=== PATIENT | male | born 1960 | race Caucasian/White ===

== ENCOUNTER 2018-06-08 18:08 | Inpatient (IN) ==
[2018-06-08] MEDS ORDERED: Naloxone 0.4 MG/ML INJ IVP PRN (23:03)
[2018-06-08 23:33] LABS: Basophils % 0.1 %; Eosinophils % 0.1 %; Hematocrit 33.2 % (37.5-50.1); Hemoglobin 10.3 g/dL (12.9-16.9); Immature Granulocytes % 0.5 % (0-4); Lymphocytes # 0.5 K/mcL (0.6-4.6); Lymphocytes % 2.8 %; Mean Corpuscular Volume 90.2 fL (83.0-100.0); Mean Platelet Volume 9.7 fL (9.4-12.4); Monocytes # 0.3 K/mcL (0.0-1.3); Monocytes % 1.6 %; Platelet Count 250 K/mcL (140-400); Red Blood Count 3.68 M/mcL (4.19-5.50); Red Cell Distribution Width 16.2 % (11.5-14.5); Segmented Neutrophils % 94.9 %
[2018-06-08 23:45] LABS: Alanine Aminotransferase 14 Units/L (7-52); Albumin 3.2 g/dL (3.5-5.7); Albumin/Globulin Ratio 0.8 (1.1-2.2); Alkaline Phosphatase 74 Units/L (34-104); Aspartate Amino Transferase 12 Units/L (13-39); BUN/Creatinine Ratio 16 (6-26); Bilirubin,Total 0.2 mg/dL (0.3-1.0); Blood Urea Nitrogen 17 mg/dL (6-20); Calcium 8.9 mg/dL (8.6-10.3); Carbon Dioxide 31 mEq/L (23-29); Chloride 107 mEq/L (98-107); Globulin 4.2 g/dL (2.4-3.5); Glucose 128 mg/dL (70-105); Osmolality,Calculated 305 (280-300); Sodium 146 mEq/L (136-145); Total Protein 7.4 g/dL (6.4-8.9); eGFR For Non-African Americans > 60 (> 60)
[2018-06-08 23:48] LABS: Troponin I 0.05 ng/mL (< 0.04)
[2018-06-08] MEDS: Ipratropium/Albuterol Neb 3 ML IH SCH (23:48)
[2018-06-09] MEDS: MethylPREDNISolone 40 MG/ML VIAL IVP SCH ×4 (00:13→18:03)
--- NOTE | 2018-06-09 02:53 | Internal Med History&Physical ---
<DarylignaciaClarisa N - Last Filed: 06/09/18 05:08> Date of Encounter: 06/09/18 Time of Encounter: 02:46 Internal Medicine - H&P: HPI Chief complaint: shortness of breath History of present illness: Mr. Cespedes is a 57 year old male with a history of lung cancer s/p partial lobectomy, CHF, and COPD presenting from outside hospital with a chief complaint of shortness of breath. Patient reportedly experienced shortness breath for 3 days and progressively worsened. He states that he had a at-home nurse who advised him to present to the emergency department after oxygen recording at home was low. Patient has a reported history of COPD, but not oxygen dependent and no home COPD medications. He does have a history of CHF and states that his Lasix was stopped approximately 11 days ago. He states that from May 29 to June 08 he has gained 10 pounds. Upon arrival to [facility] patient was noted to be saturating 88% on room air and have labored breathing. He was noted to be edematous in his lower extremities. He was given nebulizer treatm ent, Lasix 40 mg, Solu-Medrol 125, and Levaquin 750. Chest x-ray was negative for pneumonia however he did have a white blood cell count 21,000 which prompted the antibiotic treatment. BNP was within normal limits at 360 however the patient did have an elevated troponin of 0.07 and a lactic acid of 2.39. EKG was performed that did not reveal any acute ST-T wave changes. Patient was transferred to [facility] for further care and management and possible cardiology consultation. Past Med Surg Social Fam HX - Past Medical History Medical history: cancer, COPD, GERD, hyperlipidemia, hypertension Additional medical history: Lung Cancer - Past Surgical History Surgical History: other Additional surgical history: Left Lower Lobectomy - Social History Smoking Status: Current every day smoker Packs per day: 1/2 Smokeless Tobacco Status: No Alcohol use: none Drug use: none - Family History Mother History Unknown: Yes Living Status: Age at : 76 Cause of : Lung Cancer Hx Family Cardiac Disorders: Yes Hx Family Respiratory Disorders: Yes Hx Family Cancer: Yes (Lung Cancer) Internal Medicine - H&P: Meds Aspirin/Calcium Carbonate/Mag [Aspirin Buffered 325 mg Tab] 325 mg PO DAILY 06/08/18 [History] Atorvastatin Calcium [Lipitor] 40 mg PO HS 06/08/18 [History] Lisinopril [Zestril] 20 mg PO DAILY 06/08/18 [History] Mirtazapine 7.5 mg PO HS 06/08/18 [History] Ranitidine HCl [Zantac] 250 mg PO BID 06/08/18 [History] Allergy/AdvReac Type Severity Reaction Status Date / Time No Known Allergies Allergy Unverified 06/08/18 23:52 All Systems PM: A 10-system review of systems was performed and is negative for pertinent findings except as documented above in the HPI. - Constitutional Constitutional: no fever(s) - EENT Eyes: no blurry vision Ears: no decreased hearing - Cardiovascular Cardiovascular ROS IM: dyspnea on exertion, no chest pain - Respiratory Respiratory: dyspnea, chest congestion - Gastrointestinal Gastrointestinal: no diarrhea, no hematochezia, no melena - Genitourinary Genitourinary ROS male: no hematuria - Musculoskeletal Musculoskeletal ROS IM: no muscle weakness - Integumentary Integumentary IM: no rash - Neurological Neurological ROS: no dizziness - Psychiatric Psychiatric: no confusion - Endocrine Endocrine IM: no cold intolerance - Constitutional Vitals: Pulse Resp BP Pulse Ox 102 19 131/72 94 06/08/18 22:58 06/08/18 23:48 06/08/18 22:58 06/08/18 23:48 Exam: Constitutional: sleepy but does wake to verbal stimuli. Alert and oriented X 3. not acutely altered. No acute respiratory distress. HEENT: EOMI, oropharynx moist, no oropharyngeal lesions. External ears and nares patent. Neck: No JVD, trachea midline Chest: symmetrical chest wall rise, no tenderness to palpation Cardiovascular: regular rate and rhythm, no murmurs Respiratory: course breath sounds bilaterally on expiration in all lung saab but worse in lower lung saab, no wheezing. Abdomen: soft nontender, no guarding or rigidity Extremities: 2+ pitting edema in lower extremities bilaterally Skin: no rashes, no jaundice Internal Med - H&P Results - Labs CBC & Chem 7: 06/08/18 23:15 06/08/18 23:15 Labs: Short CBC 06/08/18 Range/Units 23:15 WBC 17.9 H (4.3-11.1) K/mcL Hgb 10.3 L (12.9-16.9) g/dL Hct 33.2 L (37.5-50.1) % Plt Count 250 (140-400) K/mcL Neutrophils # 17.0 H (1.6-8.9) K/mcL BMP 06/08/18 23:15 Sodium 146 H Potassium 4.0 Chloride 107 Carbon Dioxide 31 H BUN 17 Creatinine 1.05 Glucose 128 H Calcium 8.9 Cardiac Enzymes 06/08/18 Range/Units 23:15 Troponin I 0.05 H* (< 0.04) ng/mL Liver Function 06/08/18 Range/Units 23:15 Total Bilirubin 0.2 L (0.3-1.0) mg/dL AST 12 L (13-39) Units/L ALT 14 (7-52) Units/L Alkaline Phosphatase 74 (34-104) Units/L Albumin 3.2 L (3.5-5.7) g/dL - Assessment and plan (1) Acute exacerbation of chronic obstructive pulmonary disease (COPD) Current Visit: Yes Status: Acute Assessment and plan: Patient with reported history of COPD presents with 3 day history of SOB. Spirometry in December 2017 reveals FEV1 of 48% of predicted, reflecting a GOLD 3 (Severe) Stage of COPD Received Duoneb, solumedrol, and levaquin at outside hospital Vitals stable currently, saturating well on 2L Reports improvement in SOB at this time, but has significant course breath sounds bilaterally. No wheezes noted. Not on home inhalers or COPD medications Will continue scheduled duonebs and as needed albuterol inhaler Continuous pulse ox CXR negative for pneumonia, however WBC elevated at 21 at outside hospital. Repeat WBC at [place] 17.9. Repeating CXR Lactic acid at outside hospital 2.39, repeat at [facility] was 1.0 Continue Levaquin legionella antigen, strep. pneumo antigen, Blood cultures, MRSA swab pending (2) Elevated troponin Current Visit: Yes Status: Acute Assessment and plan: Suspect demand secondary to COPD vs. CHF exacerbation Elevated troponin of 0.07 at outside hospital Patient denies chest pain Repeat troponin trended down to 0.05 Repeat EKG reveals new T wave inversions in leads V4 and V5 when compared to EKG from outside hospital Stress testing in December 2017 was nondiagnostic for pharmacologic stress test due to submaximal HR and basline ST-T wave changes Nuclear stress test was negative for ischemic changes in December 2017 Gated EF 47% at that time Consideration may be given to possibility of PE if no improvement from nebulizer treatments and diuresis. Patient has a history of Cancer in the last 6 months, was tachycardic, and has troponin elevation with EKG changes. Wells criteria moderate risk. However, given current presentation and physical exam findings, COPD vs. CHF exacerbation is more likely responsible for patient's elevated troponin and SOB. Obtaining Echo cardiac monitoring Cardiology consultation placed (3) CHF (congestive heart failure) Current Visit: Yes Status: Acute Assessment and plan: History of CHF, Gated EF calculated on stress test in 12/2017 was 47% reportedly was on lasix and digoxin which were discontinued. States lasix was stopped 11 days ago He reports a 10lb weight increase over that time Received lasix 40mg at outside hospital Physical exam reveals bilateral ronchorous breath sounds and 2+ pitting edema of the lower extremities BNP at outside hospital was 360, however given patient's current clinical picture cannot completely rule out CHF exacerbation daily weights Strict I&Os Lasix 40mg daily IVP echo pending Qualifiers: Qualified Code(s): I50.9 - Heart failure, unspecified (4) History of lung cancer Current Visit: Yes Status: Acute Assessment and plan: Reports history of lung cancer, does not recall if it was small cell vs. nonsmall cell Partial lobectomy in February 2018 CXR reveals chronic changes Denies chemotherapy (5) Hypertension Current Visit: Yes Status: Acute Assessment and plan: Continue home lisinopril Qualifiers: Qualified Code(s): I10 - Essential (primary) hypertension (6) Hyperlipidemia Current Visit: Yes Status: Acute Assessment and plan: Continue home dose statin Qualifiers: Qualified Code(s): E78.5 - Hyperlipidemia, unspecified (7) GERD (gastroesophageal reflux disease) Current Visit: Yes Status: Acute Assessment and plan: Continue home dose ranitidine Qualifiers: Qualified Code(s): K21.9 - Gastro-esophageal reflux disease without esophagitis (8) DVT prophylaxis Current Visit: Yes Status: Acute Assessment and plan: Heparin 5000u SubQ 12H - Time Spent With Patient Total time spent is greater than 50% in coordination of care (as documented) at patient's floor/unit and/or counseling patient: <Teddy Masters - Last Filed: 06/09/18 08:21> Date of Encounter: 06/09/18 Internal Medicine - H&P: HPI History of present illness: Mr. Cespedes is a 57 year old male All Systems PM: A 10-system review of systems was performed and is negative for pertinent findings except as documented above in the HPI. - Constitutional Vitals: Temp Pulse Resp BP Pulse Ox 98.8 F 96 20 121/66 99 06/09/18 04:46 06/09/18 04:46 06/09/18 04:46 06/09/18 04:46 06/09/18 04:46 Internal Med - H&P Results - Labs CBC & Chem 7: 06/08/18 23:15 06/08/18 23:15 Labs: Short CBC 06/08/18 Range/Units 23:15 WBC 17.9 H (4.3-11.1) K/mcL Hgb 10.3 L (12.9-16.9) g/dL Hct 33.2 L (37.5-50.1) % Plt Count 250 (140-400) K/mcL Neutrophils # 17.0 H (1.6-8.9) K/mcL BMP 06/08/18 23:15 Sodium 146 H Potassium 4.0 Chloride 107 Carbon Dioxide 31 H BUN 17 Creatinine 1.05 Glucose 128 H Calcium 8.9 Cardiac Enzymes 06/08/18 06/09/18 Range/Units 23:15 05:51 Troponin I 0.05 H* 0.03 (< 0.04) ng/mL Liver Function 06/08/18 Range/Units 23:15 Total Bilirubin 0.2 L (0.3-1.0) mg/dL AST 12 L (13-39) Units/L ALT 14 (7-52) Units/L Alkaline Phosphatase 74 (34-104) Units/L Albumin 3.2 L (3.5-5.7) g/dL - Impressions ITS Impressions Chest X-Ray 06/09/18 05:07 IMPRESSION: Stable chest. D/ / Benjamin Salcedo MD / Benjamin Salcedo MD Interpreting Provider: Benjamin Salcedo MD - Time Spent With Patient Total time spent is greater than 50% in coordination of care (as documented) at patient's floor/unit and/or counseling patient: - Attending Attestation I performed a history and physical examination of the patient and discussed his management with the resident. I reviewed the resident's note and agree with the assessment and plan of care. In short patient is a 57-year-old male with a past medical history of lung cancer status post partial lobectomy, CHF and COPD non- oxygen dependent who initially presented to [place] with a 3 day history of progressively worsening shortness of breath. Initially found to be saturating 88% on room air. Of note patient was previously on Lasix which was discontinued 11 days prior. Since then patient has noted increased lower extremity edema and 10 pound weight gain. Patient received nebulizer treatment, Lasix 40 mg, Solu- Medrol 125, and Levaquin 750. Chest x-ray was negative for pneumonia however he did have a white blood cell count 21,000 which prompted the antibiotic treatment. Additionally, patient was found to have an elevated troponin of 0.07 and a lactic acid of 2.39. EKG did not reveal any acute ST-T wave changes. Patient admitted for COPD exacerbation. On my assessment patient did have significant rhonchi on lung examination along with 1+ lower extremity edema. He denied any chest pain and was otherwise stable from a respiratory and hemodynamic standpoint. We will treat for COPD as well as CHF exacerbation. Elevated troponin likely secondary to demand ischemia. We will continue to monitor on telemetry and trend troponin.
[2018-06-09] MEDS ORDERED: Albuterol 2.5 MG/3 ML NEBULIZER IH PRN (03:15)
[2018-06-09] MEDS: Ipratropium/Albuterol Neb 3 ML IH SCH ×4 (04:12→22:48)
[2018-06-09] MEDS ORDERED: Aspirin 325 MG TABLET PO ONE (05:07)
[2018-06-09] MEDS: *HR* Heparin 5,000 UNIT/ML VIAL SQ SCH ×3 (05:22→21:09)
[2018-06-09] MEDS ORDERED: Regadenoson 0.4 MG/5 ML SYRINGE IVP ONE (06:14)
[2018-06-09] MEDS: Lisinopril 20 MG TABLET PO SCH (09:01)
[2018-06-09] MEDS: Levofloxacin 500 MG/100 ML 500 MG/100 ML BAG IVPB SCH (09:01)
[2018-06-09] MEDS: Furosemide 40 MG/4 ML VIAL IVP SCH (09:01)
[2018-06-09] MEDS: Aspirin Enteric Coated 325 MG Tablet PO SCH (09:01)
--- NOTE | 2018-06-09 09:12 | Cardiology Consult Note ---
<ShawnYsabelKarlos C - Last Filed: 06/09/18 10:23> Date of Encounter: 06/09/18 Time of Encounter: 09:12 Assessment and Plan (1) Elevated troponin Current Visit: Yes Status: Acute Consulted for elevated troponin in the setting of EKG changes Likely demand ischemia secondary to COPD exacerbation and CHF exacerbation Less likely secondary to ACS, new T wave inversion in V4 isolated, likely related to demand Troponins have trended down to normal since admission, stress negative within 1 year Patient denies chest pain at any point, shortness of breath independent Repeat EKG stable this morning, no new changes, echo pending Recommendations Strict I&O and daily weights, diuresis Restart Lasix PRN for every 3 pounds weight gain Potassium with Lasix as needed Continue home ASA, Lisinopril Cardiology will sign off, please re-consult with any changes Further recommendations per Dr. Cooper (2) Acute exacerbation of chronic obstructive pulmonary disease (COPD) Current Visit: Yes Status: Acute History of COPD and partial lobectomy New cough and shortness of breath, O2 requirement White count may represent developing pneumonia Management per primary team (3) Acute exacerbation of CHF (congestive heart failure) Current Visit: Yes Status: Acute History of systolic heart failure, last known EF 47%, echo pending Previously on Lasix, taken off, 10 pound weight gain Physical exam appears volume overloaded Recommend continued diuresis Management per primary team Qualifiers: Heart failure type: systolic Qualified Code(s): I50.23 - Acute on chronic systolic (congestive) heart failure Discussion w patient/family: The assessment and plan as outlined above was discussed with the patient and/or family members who expressed understanding and agreement. All questions were answered. Thank you for involving us in the care of your patient. Please call with any questions. History of Present Illness Consult date: 06/09/18 Requesting physician: Clarisa Sorto Consult reason: elevated troponins and ekg changes Chief complaint: shortness of breath History of present illness: Mr. Cespedes is a 57 year old male with a past medical history of lung CA s/p partial lobecomy, CHF, COPD. He presented to [place] several days ago for progressively worsening shortness of breath and low oxygen saturation. He also mentioned his Lasix and Digoxin were stopped approximately 11 days ago by his PCP, and he has gained 10 pounds since then. He denies any chest pain. He was sent from [place] to [facility]. CXR negative, troponins trended 0.07, 0.05, 0.03. New T wave inversion in V4. Stress test performed here December 2017 was negative for perfusion defects, with a gated EF of 47%. He denies any previous catheterization, PCI, or CABG. EV Echcardiogram was ordered and Cardiology was consulted. Past Med Surg Social Fam HX - Past Medical History Medical history: cancer, COPD, GERD, hyperlipidemia, hypertension Additional medical history: Lung Cancer - Past Surgical History Surgical History: other Additional surgical history: Left Lower Lobectomy - Social History Smoking Status: Current every day smoker Packs per day: 1/2 Smokeless Tobacco Status: No Alcohol use: none Drug use: none - Family History Mother History Unknown: Yes Living Status: Age at : 76 Cause of : Lung Cancer Hx Family Cardiac Disorders: Yes Hx Family Respiratory Disorders: Yes Hx Family Cancer: Yes (Lung Cancer) Medications and Allergies Aspirin/Calcium Carbonate/Mag [Aspirin Buffered 325 mg Tab] 325 mg PO DAILY 06/08/18 [History] Atorvastatin Calcium [Lipitor] 40 mg PO HS 06/08/18 [History] Lisinopril [Zestril] 20 mg PO DAILY 06/08/18 [History] Mirtazapine 7.5 mg PO HS 06/08/18 [History] Ranitidine HCl [Zantac] 250 mg PO BID 06/08/18 [History] Allergy/AdvReac Type Severity Reaction Status Date / Time No Known Allergies Allergy Unverified 06/08/18 23:52 All Systems Review: The remainder of the systems were reviewed and are negative - Constitutional Constitutional: weight gain, no chills, no fever(s) - Cardiovascular Cardiovascular: dyspnea at rest, dyspnea on exertion, orthopnea, no chest pain at rest, no chest pain with exertion, no irregular heart rhythm, no radiating jaw, neck or arm pain, no palpitations - Respiratory Respiratory: cough, dyspnea - Gastrointestinal Gastrointestinal: no abdominal pain, no nausea - Integumentary Integumentary: no erythema, no rash - Neurological Neurological: no abnormal speech, no focal weakness Physical Examination Vital Signs, Last 4 Hours Temp Pulse Resp BP Pulse Ox 06/09/18 09:05 98.9 F 90 16 119/60 98 General: Conversant, No Apparent Distress HEENT: Atraumatic, Mucus Membranes Moist Neck: Other (JVD present) Cardiac: Reg Rate and Rhythm, Other (S1 and S2 present, loud S2) Lungs: Other (significant rhonchi, wet cough) Neuro: Alert and responsive, No focal deficits noted Abdomen: Soft, Non-Tender Skin: No rashes noted on visualized skin Musculoskeletal: No Chest Wall Tenderness Extremities: Normal Pulses, Other (mild non pitting edema present in bilateral lower extremities) Results 06/08/18 23:15 06/08/18 23:15 Lab Results 06/08/18 06/08/18 06/09/18 23:15 23:15 05:51 WBC 17.9 H Hgb 10.3 L Hct 33.2 L Plt Count 250 Sodium 146 H Potassium 4.0 Chloride 107 Carbon Dioxide 31 H BUN 17 Creatinine 1.05 Glucose 128 H Calcium 8.9 Total Bilirubin 0.2 L AST 12 L ALT 14 Alkaline Phosphatase 74 Troponin I 0.05 H* 0.03 - Imaging and Cardiology Chest Xray: report reviewed Echo: pending - EKG Interpretation EKG results cardiology: personally reviewed, sinus rhythm (New T wave inversion in V4 when compared to previous from [place] prior to transfer on same day, also missing conduction delay in V3 from previous) Consult Discharge Plan - Plan Referrals: Herman Ramey DO [Primary Care Provider] - <Nat Cooper - Last Filed: 06/09/18 12:18> Date of Encounter: 06/09/18 - Attending Attestation Patient was seen and evaluated independently by me. Findings, assessment and plan were discussed at length with patient, questions answered. Agree with nurse practitioner's/resident's documentation. Addition as follows, 57 yoM ho severe COPD, lung Ca s/p LLL lobectomy, HTN, CHF EF 47% on SPECT 2017. P/w worsening PAGE, wt gain 1 wk with cough and wheeze, lasix d/c recently. Consulted for mild tropopinin elevation flat. ECG sinus tachycardia, NS STT. TTE pending. Pharm SPECT no ischemia or infarct. BP ok, B/L rhonchi and wheeze, basialar fine crackles, RR, tachy, no M/G/R, B/L 2+ LE edema to mid shins. Leukocytosis, mild anemia, no SUSANA, K 4. A: Mild troponin elevation, likely type II STEMI or myocardial injury SIRS COPD exacerbation PNA ADHF, mild fluid overload P: pending TTE lasix iv till baseline wt or Cr/Bun up trending keep K>4, Mg>2 resume nabil after euvolemia, if EF low, will need low dose of metoprolol Nat Cooper MD, PhD Assessment and Plan Discussion w patient/family: The assessment and plan as outlined above was discussed with the patient and/or family members who expressed understanding and agreement. All questions were answered. Thank you for involving us in the care of your patient. Please call w ith any questions. History of Present Illness History of present illness: Mr. Cespedes is a 57 year old male All Systems Review: The remainder of the systems were reviewed and are negative Physical Examination Vital Signs, Last 4 Hours Temp Pulse Resp BP Pulse Ox 06/09/18 11:26 18 98 06/09/18 10:51 98.9 F 92 18 127/64 99 06/09/18 09:05 98.9 F 90 16 119/60 98 Results 06/08/18 23:15 06/08/18 23:15 Lab Results 06/08/18 06/08/18 06/09/18 23:15 23:15 05:51 WBC 17.9 H Hgb 10.3 L Hct 33.2 L Plt Count 250 Sodium 146 H Potassium 4.0 Chloride 107 Carbon Dioxide 31 H BUN 17 Creatinine 1.05 Glucose 128 H Calcium 8.9 Total Bilirubin 0.2 L AST 12 L ALT 14 Alkaline Phosphatase 74 Troponin I 0.05 H* 0.03
[2018-06-09] MEDS: Famotidine 20 MG TABLET PO SCH ×2 (12:45→21:09)
--- NOTE | 2018-06-09 18:21 | Event Note ---
<Joe Rico Elsa - Last Filed: 06/09/18 17:57> Date of Encounter: 06/09/18 Time of Encounter: 11:15 Mr. Cespedes is a 57M with PMH of lung cancer s/p partial lobectomy, CHF, and COPD. He originally presented to [place] complaining of shortness of breath. While at [facility] he was given nebulizer treatments, Lasix 40 mg, Solu- Medrol 125, and Levaquin 750. Chest x-ray was negative for pneumonia. He was found to have a WBC of 21 which prompted the antibiotic treatment. BNP was within normal limits at 360, however troponin was elevated at 0.07 and lactic acid at 2.39. EKG was performed that did not reveal any acute ST-T wave changes. Patient was transferred to [facility] for further care and management and possible cardiology consultation. Labs drawn at [place] showed WBC of 17.9, improved troponin of 0.05, and improved lactic acid of 1.0. Pt seen and examined at bedside by this provider. Pt states he feels much better with significant improvement in his shortness of breath. States his PCP took him off Lasix approximately 11 days ago and he has gained weight and felt increasingly edematous since. States that his lower extremity edema has improved since yesterday as well. Denies any chest pain, fever, chills, abdominal pain, nausea, vomiting, headaches, numbness, or tingling. PE: General: well nourished and well developed male in no acute distress Head: normocephalic and atraumatic Eyes: PERRL, EOMI, sclera anicteric, conjunctiva pink Neck: supple, trachea midline Lungs: Some rales. No wheezes or rhonchi. Non-labored breathing on 2lpm NC Heart: RRR +s1 +s2 No murmurs, clicks, or rubs GI: abdomen soft, non-tender, non-distended. normoactive bowel sounds Extremities: warm, radial pulses palpable and symmetrical. non-pitting edema in bilateral LEs. No cyanosis or calf tenderness Neuro: A&Ox3. no focal deficits. no speech difficulty or abnormality Skin: warm, dry, intact A/P: COPD Exacerbation - Presented with CC of shortness of breath - Received Duoneb, Solumedrol, and Levaquin at [place] - CXR with no acute abnormalities at both [place] and [facility] - Leukocytosis of 21 and 17.9 - MRSA swab negative - Strep and Legionella urine antigens negative - Blood cultures x2 pending - Pt attempting to provide sputum sample for culture - Continue Levaquin, solumedrol, and duonebs - Likely to de-escalate steroids tomorrow CHF Exacerbation - Presented with CC of shortness of breath and edema - Recently taken off Lasix by his PCP with reported subsequent weight gain - Received 40mg Lasix at [place] with significant clinical improvement following - Echo with the following findings: LVEF 65%. Mild left ventricular diastolic dysfunction. Normal right ventricular structure and function. Mild mitral regurgitation. Mild-moderate tricuspid regurgitation. Moderate pulmonary hypertension. There is a trivial pericardial effusion present. There is no echocardiographic evidence of tamponade. - Plan as above in COPD exacerbation plus daily Lasix Elevated Troponin - Continues to deny chest pain - EKG without ischemic changes - Initial trop 0.07 --> 0.05 --> 0.03 - Likely due to demand ischemia with acute exacerbations of chronic illnesses as above - Continue to monitor <Hernan Carbajal - Last Filed: 06/09/18 19:06> Date of Encounter: 06/09/18 Pt was admitted earlier this AM with acute exac COPD. Overall he is beginning to feel better. Exam alert Comfortable Rhonchi bilaterally Agree with assessment and plan as above and in H&P
[2018-06-09] MEDS: Mirtazapine 15 MG TABLET PO SCH (21:09)
[2018-06-10] MEDS: MethylPREDNISolone 40 MG/ML VIAL IVP SCH ×3 (00:35→17:18)
[2018-06-10] MEDS: Ipratropium/Albuterol Neb 3 ML IH SCH ×4 (03:50→22:04)
[2018-06-10] MEDS: *HR* Heparin 5,000 UNIT/ML VIAL SQ SCH ×3 (05:09→22:21)
[2018-06-10 06:55] LABS: Basophils % 0.1 %; Hematocrit 29.4 % (37.5-50.1); Hemoglobin 8.8 g/dL (12.9-16.9); Immature Granulocytes % 0.4 % (0-4); Lymphocytes % 7.4 %; Mean Corpuscular HGB Conc 29.9 g/dL (31.6-35.5); Mean Corpuscular Hemoglobin 27.8 pg (28.0-33.3); Mean Platelet Volume 9.7 fL (9.4-12.4); Monocytes # 1.3 K/mcL (0.0-1.3); Monocytes % 9.1 %; Neutrophils # 11.5 K/mcL (1.6-8.9); Platelet Count 271 K/mcL (140-400); Red Blood Count 3.16 M/mcL (4.19-5.50); Red Cell Distribution Width 16.4 % (11.5-14.5)
[2018-06-10 07:13] LABS: BUN/Creatinine Ratio 26 (6-26); Blood Urea Nitrogen 33 mg/dL (6-20); Calcium 8.9 mg/dL (8.6-10.3); Carbon Dioxide 32 mEq/L (23-29); Chloride 107 mEq/L (98-107); Glucose 135 mg/dL (70-105); Osmolality,Calculated 307 (280-300); Potassium 4.3 mEq/L (3.5-5.1); Sodium 144 mEq/L (136-145); eGFR For Non-African Americans 59 (> 60)
--- NOTE | 2018-06-10 08:29 | Internal Med Progress Note ---
<BrittanyNaomy M - Last Filed: 06/10/18 10:24> Hospitalist Progress Note - Encounter Date of Encounter: 06/10/18 - Exam Vitals: Temp Pulse Resp BP Pulse Ox 98.9 F 88 14 107/57 96 06/10/18 07:18 06/10/18 07:18 06/10/18 07:18 06/10/18 07:18 06/10/18 07:18 - Time Spent with Patient Total time spent is greater than 50% in coordination of care (as documented) at patient's floor/unit and/or counseling patient: Internal Medicine: Result - Labs CBC & Chem 7: 06/10/18 06:38 06/10/18 06:38 Labs: Short CBC 06/10/18 Range/Units 06:38 WBC 13.8 H (4.3-11.1) K/mcL Hgb 8.8 L D (12.9-16.9) g/dL Hct 29.4 L (37.5-50.1) % Plt Count 271 (140-400) K/mcL Neutrophils # 11.5 H (1.6-8.9) K/mcL BMP 06/10/18 06:38 Sodium 144 Potassium 4.3 Chloride 107 Carbon Dioxide 32 H BUN 33 H Creatinine 1.25 Glucose 135 H Calcium 8.9 - Impressions Impressions Echocardiogram 06/09/18 03:12 Impressions: LVEF 65%. Mild left ventricular diastolic dysfunction. Normal right ventricular structure and function. Mild mitral regurgitation. Mild-moderate tricuspid regurgitation. Moderate pulmonary hypertension. There is a trivial pericardial effusion present. There is no echocardiographic evidence of tamponade. Left Ventricular Wall Motion: Rest Echo Findings All wall segments showed normal motion. Findings: Study Quality * Technically adequate exam. ECG Findings * Normal sinus rhythm. Left Ventricle * LVEF 65%. * Normal LV chamber size, wall thickness and function. * Mild left ventricular diastolic dysfunction. Right Ventricle * Normal right ventricular structure and function. Left Atrium * Moderately dilated left atrium. Right Atrium * Normal right atrial size. Mitral Valve * Normal mitral valve structure. * No mitral stenosis. * Mild mitral regurgitation. Aortic Valve * No aortic regurgitation. * Aortic valve not well visualized. * No aortic stenosis. Tricuspid Valve * Mild-moderate tricuspid regurgitation. * Estimated RA pressure is 8 mmHg. * Estimated RVSP is 60 mmHg. * Moderate pulmonary hypertension. Pulmonic Valve * Pulmonic valve is not well visualized. * No pulmonic stenosis. * No pulmonic regurgitation. Pulmonary Artery * Pulmonary artery not well visualized. Aorta * Normally sized aortic root. Pericardium * There is a trivial pericardial effusion present. * There is no echocardiographic evidence of tamponade. Interatrial Septum * No evidence of PFO by color Doppler. IVC * The IVC is not dilated. * < 50% respiratory change. Consult Discharge Plan - Plan Referrals: Herman Ramey DO [Primary Care Provider] - - Attending Attestation I examined this patient and my medical decision-making was reviewed with the Resident Physician Dr Rico. I agree with the documented findings, disposition and treatment plan as described except to the extent set forth below. Mr Cespedes is being observed for COPDE and Acute on Chronic CHF exacerbation. Mr Cespedes is awake, pleasant. SOB is improving as is lower extremity edema. On o2 NC, not on o2 at home. + cough, cannot bring up sputum, + wheezing. no fevers or chills gen- alert, awake,appears stated age eyes- pupils equal round cv- reg rate and rhythm, normal s1,s2, no murmurs appreciated, + 1 pitting edema to bl knees lungs- + scattered expiratory wheezing, no rhonchi or crackles, normal resp effort on o2 nc abd- soft, non tender, non distended, + bs neuro- AAOx3 1. COPDE- nebs, steroids, cont levaquin 2.Acute on Chronic Diastolic CHF Exacerbation- home lasix recently held, cont IV diuresis and monitor lytes/ i/os, cards has seen and signed off-checked echo normal EF 3. Trop elevation, resolved, no ekg changes- cards has seen and signed off-cont home meds 4. Anemia, unknown if acute, acute on chronic or stable chronic- drop in all 3 cell lines on admit, will cont to follow, no signs of active bleeding at this time Further assessment and plan as noted by resident <Joe Rico - Last Filed: 06/10/18 20:39> Hospitalist Progress Note - Encounter Date of Encounter: 06/10/18 Time of Encounter: 09:15 - Subjective Interval History: Pt seen and examined at bedside. Pt states he feels "pretty good" today. States his shortness of breath is slightly improved from yesterday. States that his lower extremity edema has improved since yesterday as well. Denies any chest pain, fever, chills, abdominal pain, nausea, vomiting, headaches, numbness, or tingling. - Exam Vitals: Temp Pulse Resp BP Pulse Ox 98.9 F 88 14 107/57 96 06/10/18 07:18 06/10/18 07:18 06/10/18 07:18 06/10/18 07:18 06/10/18 07:18 Exam: General: well nourished and well developed male in no acute distress Head: normocephalic and atraumatic Eyes: PERRL, EOMI, sclera anicteric, conjunctiva pink Neck: supple, trachea midline Lungs: Some rales. No wheezes or rhonchi. Non-labored breathing on 2lpm NC Heart: RRR +s1 +s2 No murmurs, clicks, or rubs GI: abdomen soft, non-tender, non-distended. normoactive bowel sounds Extremities: warm, radial pulses palpable and symmetrical. Trace pitting edema in bilateral LEs. No cyanosis or calf tenderness Neuro: A&Ox3. no focal deficits. no speech difficulty or abnormality Skin: warm, dry, intact - Assessment and Plan (1) Acute exacerbation of chronic obstructive pulmonary disease (COPD) Current Visit: Yes Status: Acute Assessment and Plan: - Presented with CC of shortness of breath - Received Duoneb, Solumedrol, and Levaquin at [place] - CXR with no acute abnormalities at both [place] and [facility] - Leukocytosis of 21 and 17.9 initially, improved today at 13.8 - MRSA swab negative - Strep and Legionella urine antigens negative - Blood cultures x2 pending - Pt attempting to provide sputum sample for culture Continue Levaquin (Day 2) De-escalate solumedrol to 40mg BID with improvement in respiratory status Continue scheduled duonebs (2) Acute exacerbation of CHF (congestive heart failure) Current Visit: Yes Status: Acute Assessment and Plan: - Presented with CC of shortness of breath and edema - Recently taken off Lasix by his PCP with reported subsequent weight gain - Received 40mg Lasix at [place] with significant clinical improvement following - Echo with the following findings: LVEF 65%. Mild left ventricular diastolic dysfunction. Normal right ventricular structure and function. Mild mitral regurgitation. Mild-moderate tricuspid regurgitation. Moderate pulmonary hypertension. There is a trivial pericardial effusion present. There is no echocardiographic evidence of tamponade. Plan as above in COPD exacerbation plus daily Lasix (3) Elevated troponin Current Visit: Yes Status: Acute Assessment and Plan: - Continues to deny chest pain - EKG without ischemic changes - Initial trop 0.07 --> 0.05 --> 0.03 - Likely due to demand ischemia with acute exacerbations of chronic illnesses as above - Continue to monitor (4) Hypertension Current Visit: Yes Status: Acute Assessment and Plan: Controlled at 116/58 Continue home Lisinopril (5) Hyperlipidemia Current Visit: Yes Status: Acute Assessment and Plan: Continue home Lipitor DVT Prophylaxis: SQ Heparin - Time Spent with Patient Total time spent is greater than 50% in coordination of care (as documented) at patient's floor/unit and/or counseling patient: Internal Medicine: Result - Labs CBC & Chem 7: 06/10/18 06:38 06/10/18 06:38 Labs: Short CBC 06/10/18 Range/Units 06:38 WBC 13.8 H (4.3-11.1) K/mcL Hgb 8.8 L D (12.9-16.9) g/dL Hct 29.4 L (37.5-50.1) % Plt Count 271 (140-400) K/mcL Neutrophils # 11.5 H (1.6-8.9) K/mcL BMP 06/10/18 06:38 Sodium 144 Potassium 4.3 Chloride 107 Carbon Dioxide 32 H BUN 33 H Creatinine 1.25 Glucose 135 H Calcium 8.9 - Impressions Impressions Echocardiogram 06/09/18 03:12 Impressions: LVEF 65%. Mild left ventricular diastolic dysfunction. Normal right ventricular structure and function. Mild mitral regurgitation. Mild-moderate tricuspid regurgitation. Moderate pulmonary hypertension. There is a trivial pericardial effusion present. There is no echocardiographic evidence of tamponade. Left Ventricular Wall Motion: Rest Echo Findings All wall segments showed normal motion. Findings: Study Quality * Technically adequate exam. ECG Findings * Normal sinus rhythm. Left Ventricle * LVEF 65%. * Normal LV chamber size, wall thickness and function. * Mild left ventricular diastolic dysfunction. Right Ventricle * Normal right ventricular structure and function. Left Atrium * Moderately dilated left atrium. Right Atrium * Normal right atrial size. Mitral Valve * Normal mitral valve structure. * No mitral stenosis. * Mild mitral regurgitation. Aortic Valve * No aortic regurgitation. * Aortic valve not well visualized. * No aortic stenosis. Tricuspid Valve * Mild-moderate tricuspid regurgitation. * Estimated RA pressure is 8 mmHg. * Estimated RVSP is 60 mmHg. * Moderate pulmonary hypertension. Pulmonic Valve * Pulmonic valve is not well visualized. * No pulmonic stenosis. * No pulmonic regurgitation. Pulmonary Artery * Pulmonary artery not well visualized. Aorta * Normally sized aortic root. Pericardium * There is a trivial pericardial effusion present. * There is no echocardiographic evidence of tamponade. Interatrial Septum * No evidence of PFO by color Doppler. IVC * The IVC is not dilated. * < 50% respiratory change. <Joe Rico - Last Filed: 06/10/18 20:39> (2) Acute exacerbation of CHF (congestive heart failure) Qualifiers: Heart failure type: diastolic Qualified Code(s): I50.33 - Acute on chronic diastolic (congestive) heart failure (4) Hypertension Qualifiers: Qualified Code(s): I10 - Essential (primary) hypertension (5) Hyperlipidemia Qualifiers: Hyperlipidemia type: unspecified Qualified Code(s): E78.5 - Hyperlipidemia, unspecified
--- NOTE | 2018-06-10 08:59 | Electrocardiograph Report ---
[place] [id number] Test Date: 2018-06-09 Pat Name: Vivek Cespedes Department: 103 Room: 2NE28 Gender: M [employer]: : 1960 Requested By: Karlos Escobar Order Number: [id number] Reading MD: Anne-Marie Levy Measurements Intervals [place] Rate: 96 P: 70 LA: 138 QRS: 58 QRSD: 89 T: 71 QT: 367 QTc: 420 Interpretive Statements Normal sinus rhythm T wave abnormality precordial leads, consider ischemia Electronically Signed On 06-10-2018 8:57:29 EST by Anne-Marie Levy
--- NOTE | 2018-06-10 09:07 | Electrocardiograph Report ---
[place] [id number] Test Date: 2018-06-08 Pat Name: Vivek Cespedes Department: 103 Room: 2NE28 Gender: M [employer] Operator: : 1960 Requested By: Teddy Masters Order Number: [id number] Reading MD: Anne-Marie Levy Measurements Intervals [place] Rate: 106 P: 64 NV: 136 QRS: 46 QRSD: 90 T: 71 QT: 357 QTc: 419 Interpretive Statements SINUS TACHYCARDIA MODERATE T-WAVE ABNORMALITY, CONSIDER ANTERIOR ISCHEMIA [-0.1+ mV T WAVE IN V3/V4] Electronically Signed On 06-10-2018 9:06:30 EST by Anne-Marie Levy
[2018-06-10] MEDS: Lisinopril 20 MG TABLET PO SCH (10:29)
[2018-06-10] MEDS: Aspirin Enteric Coated 325 MG Tablet PO SCH (10:29)
[2018-06-10] MEDS: Furosemide 40 MG/4 ML VIAL IVP SCH (10:29)
[2018-06-10] MEDS: Levofloxacin 500 MG/100 ML 500 MG/100 ML BAG IVPB SCH (10:38)
[2018-06-10] MEDS: Famotidine 20 MG TABLET PO SCH ×2 (10:46→22:21)
[2018-06-10] MEDS: Mirtazapine 15 MG TABLET PO SCH (22:21)
[2018-06-11] MEDS: Ipratropium/Albuterol Neb 3 ML IH SCH ×4 (04:00→22:04)
[2018-06-11] MEDS: MethylPREDNISolone 40 MG/ML VIAL IVP SCH ×2 (05:55→18:15)
[2018-06-11] MEDS: *HR* Heparin 5,000 UNIT/ML VIAL SQ SCH ×3 (05:56→21:06)
[2018-06-11 07:08] LABS: Basophils % 0.1 %; Eosinophils % 0.1 %; Hematocrit 30.3 % (37.5-50.1); Hemoglobin 9.5 g/dL (12.9-16.9); Immature Granulocytes % 0.6 % (0-4); Lymphocytes # 1.8 K/mcL (0.6-4.6); Lymphocytes % 11.5 %; Mean Corpuscular HGB Conc 31.4 g/dL (31.6-35.5); Mean Corpuscular Hemoglobin 28.4 pg (28.0-33.3); Mean Corpuscular Volume 90.4 fL (83.0-100.0); Mean Platelet Volume 9.8 fL (9.4-12.4); Monocytes # 1.7 K/mcL (0.0-1.3); Monocytes % 10.7 %; Neutrophils # 12.2 K/mcL (1.6-8.9); Platelet Count 246 K/mcL (140-400); Red Blood Count 3.35 M/mcL (4.19-5.50); Red Cell Distribution Width 16.2 % (11.5-14.5)
[2018-06-11 08:07] LABS: BUN/Creatinine Ratio 34 (6-26); Blood Urea Nitrogen 35 mg/dL (6-20); Carbon Dioxide 31 mEq/L (23-29); Chloride 107 mEq/L (98-107); Glucose 107 mg/dL (70-105); Osmolality,Calculated 310 (280-300); Potassium 4.2 mEq/L (3.5-5.1); Sodium 146 mEq/L (136-145); eGFR For Non-African Americans > 60 (> 60)
[2018-06-11] MEDS: Famotidine 20 MG TABLET PO SCH ×2 (09:13→20:00)
[2018-06-11] MEDS: Aspirin Enteric Coated 325 MG Tablet PO SCH (09:13)
[2018-06-11] MEDS: Furosemide 40 MG/4 ML VIAL IVP SCH (09:13)
[2018-06-11] MEDS: Lisinopril 20 MG TABLET PO SCH (09:14)
[2018-06-11] MEDS: Levofloxacin 500 MG/100 ML 500 MG/100 ML BAG IVPB SCH (09:14)
--- NOTE | 2018-06-11 14:23 | Internal Med Progress Note ---
<BrittanyNaomy M - Last Filed: 06/11/18 14:39> Hospitalist Progress Note - Encounter Date of Encounter: 06/11/18 - Exam Vitals: Temp Pulse Resp BP Pulse Ox 98.2 F 89 16 122/60 98 06/11/18 11:15 06/11/18 11:15 06/11/18 11:15 06/11/18 11:15 06/11/18 13:05 - Assessment and Plan (1) Acute exacerbation of chronic obstructive pulmonary disease (COPD) Current Visit: Yes Status: Acute (2) Elevated troponin Current Visit: Yes Status: Acute (3) Hypertension Current Visit: Yes Status: Acute (4) Hyperlipidemia Current Visit: Yes Status: Acute (5) Acute exacerbation of CHF (congestive heart failure) Current Visit: Yes Status: Acute - Time Spent with Patient Total time spent is greater than 50% in coordination of care (as documented) at patient's floor/unit and/or counseling patient: Internal Medicine: Result - Labs CBC & Chem 7: 06/11/18 06:58 06/11/18 06:58 Labs: Short CBC 06/11/18 Range/Units 06:58 WBC 15.9 H (4.3-11.1) K/mcL Hgb 9.5 L (12.9-16.9) g/dL Hct 30.3 L (37.5-50.1) % Plt Count 246 (140-400) K/mcL Neutrophils # 12.2 H (1.6-8.9) K/mcL BMP 06/11/18 06:58 Sodium 146 H Potassium 4.2 Chloride 107 Carbon Dioxide 31 H BUN 35 H Creatinine 1.03 Glucose 107 H Calcium 9.0 Consult Discharge Plan - Plan Referrals: Herman Ramey DO [Primary Care Provider] - - Attending Attestation I examined this patient and my medical decision-making was reviewed with the Resident Physician Dr Rico. I agree with the documented findings, disposition and treatment plan as described except to the extent set forth below. Mr Cespedes is being observed for COPDE and Acute on Chronic CHF exacerbation. Mr Cespedes is awake, pleasant.not sob on o2 nc, cough but denies sputum or wheezing. states le edema is gone. feeling much improved. gen- alert, awake,appears stated age cv- reg rate and rhythm, normal s1,s2, no murmurs appreciated, trace pitting edema to bl shins, no jvd lungs- ctabl, no rhonchi or crackles, normal resp effort on o2 nc abd- soft, non tender, non distended, + bs neuro- AAOx3 1. COPDE- nebs, transition to oral steroids, cont levaquin, 6 min walk 2.Acute on Chronic Diastolic CHF Exacerbation- home lasix recently held outpt, cont IV diuresis , transition to oral in am 3. Trop elevation, resolved, no ekg changes- cards has seen and signed off-cont home meds, fu outpt 4. Anemia, unknown if acute, acute on chronic or stable chronic- drop in all 3 cell lines on admit, will cont to follow, no signs of active bleeding at this time, check occult stool as family noted ot team today they found streaks of red blood in underwear at home this week, no active bleeding here Further assessment and plan as noted by resident <Joe Rico - Last Filed: 06/11/18 15:53> Hospitalist Progress Note - Encounter Date of Encounter: 06/11/18 Time of Encounter: 08:30 - Subjective Interval History: Pt seen and examined at bedside. Pt states he feels "pretty good" today. States his shortness of breath and lower extremity edema remains improved. Denies any chest pain, fever, chills, abdominal pain, nausea, vomiting, headaches, numbnes s, or tingling. Of note family called and spoke with nurse this afternoon. Family was concerned since they noticed streaks of blood in patient's underwear while doing laundry today. Pt unable to recall any previous symptoms beyond shortness of breath and edema. - Exam Vitals: Temp Pulse Resp BP Pulse Ox 98.2 F 89 16 122/60 98 06/11/18 11:15 06/11/18 11:15 06/11/18 11:15 06/11/18 11:15 06/11/18 13:05 Exam: General: well nourished and well developed male in no acute distress Head: normocephalic and atraumatic Eyes: PERRL, EOMI, sclera anicteric, conjunctiva pink Neck: supple, trachea midline Lungs: Diffuse coarse breath sounds. No wheezes or rhonchi. Non-labored breathing on 2lpm NC Heart: RRR +s1 +s2 No murmurs, clicks, or rubs GI: abdomen soft, non-tender, non-distended. normoactive bowel sounds Extremities: warm, radial pulses palpable and symmetrical. Trace pitting edema in bilateral LEs. No cyanosis or calf tenderness Neuro: A&Ox3. no focal deficits. no speech difficulty or abnormality Skin: warm, dry, intact - Assessment and Plan (1) Acute exacerbation of chronic obstructive pulmonary disease (COPD) Current Visit: Yes Status: Acute Assessment and Plan: - Presented with CC of shortness of breath - Received Duoneb, Solumedrol, and Levaquin at [place] - CXR with no acute abnormalities at both [facility] and [facility] - Leukocytosis of 21 and 17.9 initially, stable today at 15.9 - MRSA swab negative - Strep and Legionella urine antigens negative - Blood cultures x2 pending - Pt attempting to provide sputum sample for culture Continue Levaquin (Day 3) Continue Solumedrol 40mg BID, plan to transition to Prednisone 40mg po in the morning Continue scheduled duonebs (2) Acute exacerbation of CHF (congestive heart failure) Current Visit: Yes Status: Acute Assessment and Plan: - Presented with CC of shortness of breath and edema - Recently taken off Lasix by his PCP with reported subsequent weight gain - Received 40mg Lasix at [place] with significant clinical improvement following - Echo with the following findings: LVEF 65%. Mild left ventricular diastolic dysfunction. Normal right ventricular structure and function. Mild mitral regurgitation. Mild-moderate tricuspid regurgitation. Moderate pulmonary hypertension. There is a trivial pericardial effusion present. There is no echocardiographic evidence of tamponade. Plan as above in COPD exacerbation plus daily Lasix Planning to transition from IV Lasix 40mg daily to po Lasix 40mg daily in anticipation of discharge (3) Elevated troponin Current Visit: Yes Status: Resolved Assessment and Plan: - Continues to deny chest pain - EKG without ischemic changes - Initial trop 0.07 --> 0.05 --> 0.03 - Likely due to demand ischemia with acute exacerbations of chronic illnesses as above - Continue to monitor (4) Hypertension Current Visit: Yes Status: Acute Assessment and Plan: Controlled at 120/66 Continue home Lisinopril (5) Hyperlipidemia Current Visit: Yes Status: Acute Assessment and Plan: Continue home Lipitor DVT Prophylaxis: SQ Heparin - Time Spent with Patient Total time spent is greater than 50% in coordination of care (as documented) at patient's floor/unit and/or counseling patient: Internal Medicine: Result - Labs CBC & Chem 7: 06/11/18 06:58 06/11/18 06:58 Labs: Short CBC 06/11/18 Range/Units 06:58 WBC 15.9 H (4.3-11.1) K/mcL Hgb 9.5 L (12.9-16.9) g/dL Hct 30.3 L (37.5-50.1) % Plt Count 246 (140-400) K/mcL Neutrophils # 12.2 H (1.6-8.9) K/mcL BMP 06/11/18 06:58 Sodium 146 H Potassium 4.2 Chloride 107 Carbon Dioxide 31 H BUN 35 H Creatinine 1.03 Glucose 107 H Calcium 9.0 _ <Naomy Soto - Last Filed: 06/11/18 14:39> (3) Hypertension Qualifiers: Qualified Code(s): I10 - Essential (primary) hypertension (4) Hyperlipidemia Qualifiers: Hyperlipidemia type: unspecified Qualified Code(s): E78.5 - Hyperlipidemia, unspecified (5) Acute exacerbation of CHF (congestive heart failure) Qualifiers: Heart failure type: diastolic Qualified Code(s): I50.33 - Acute on chronic diastolic (congestive) heart failure <Joe Rico A - Last Filed: 06/11/18 15:53> (2) Acute exacerbation of CHF (congestive heart failure) Qualifiers: Heart failure type: diastolic Qualified Code(s): I50.33 - Acute on chronic diastolic (congestive) heart failure (4) Hypertension Qualifiers: Qualified Code(s): I10 - Essential (primary) hypertension (5) Hyperlipidemia Qualifiers: Hyperlipidemia type: unspecified Qualified Code(s): E78.5 - Hyperlipidemia, unspecified
[2018-06-11] MEDS: Mirtazapine 15 MG TABLET PO SCH (20:00)
[2018-06-12] MEDS: Ipratropium/Albuterol Neb 3 ML IH SCH ×2 (04:22→10:29)
[2018-06-12] MEDS: *HR* Heparin 5,000 UNIT/ML VIAL SQ SCH (05:11)
[2018-06-12 07:09] LABS: Basophils % 0.1 %; Hematocrit 30.3 % (37.5-50.1); Hemoglobin 9.3 g/dL (12.9-16.9); Immature Granulocytes % 0.5 % (0-4); Lymphocytes # 1.8 K/mcL (0.6-4.6); Lymphocytes % 13.7 %; Mean Corpuscular HGB Conc 30.7 g/dL (31.6-35.5); Mean Corpuscular Hemoglobin 27.8 pg (28.0-33.3); Mean Corpuscular Volume 90.4 fL (83.0-100.0); Mean Platelet Volume 9.8 fL (9.4-12.4); Monocytes # 1.6 K/mcL (0.0-1.3); Monocytes % 12.5 %; Neutrophils # 9.5 K/mcL (1.6-8.9); Platelet Count 260 K/mcL (140-400); Red Blood Count 3.35 M/mcL (4.19-5.50); Red Cell Distribution Width 16.3 % (11.5-14.5); Segmented Neutrophils % 73.2 %
[2018-06-12 07:28] LABS: BUN/Creatinine Ratio 29 (6-26); Blood Urea Nitrogen 31 mg/dL (6-20); Calcium 8.8 mg/dL (8.6-10.3); Carbon Dioxide 36 mEq/L (23-29); Chloride 104 mEq/L (98-107); Glucose 99 mg/dL (70-105); Osmolality,Calculated 305 (280-300); Potassium 3.8 mEq/L (3.5-5.1); Sodium 144 mEq/L (136-145); eGFR For Non-African Americans > 60 (> 60)
[2018-06-12 07:48] VITALS: BP 118/69
--- NOTE | 2018-06-12 08:40 | Discharge Summary ---
<Joe Rico - Last Filed: 06/12/18 13:43> - NOTES TO OUTPATIENT PROVIDER Notes to Outpatient Provider: Mr. Cespedes was admitted to [facility] on 06/08/18 after presenting initially to [facility] for shortness of breath, swelling, and weight gain. CXR was negative. EKG showed no ST-T wave changes. Echocardiogram showed LVEF 65% with mild LV diastolic dysfunction. He was treated for CHF and COPD exacerbations with Levaquin, a steroid burst, and Lasix. He improved clinically with these medications. At time of discharge he was given prescriptios for 4 days remaining of Levaquin, 1 day of Prednisone to complete a 5 day burst, and 40mg po Lasix daily. Advised to follow a 1.5L fluid restricted diet. He was also given an albuterol inhaler script as he does not have a home nebulizer, and qualified for 2lpm supplemental O2 at home. Recommend follow up with PCP in 3-5 days after discharge. Orders not resulted at time of discharge: Pending orders 06/08/18 22:58 Culture,Sputum with Gram Stain [RM] Routine 06/09/18 05:51 Culture,Blood [BC] Stat Date of Encounter: 06/12/18 Time of Encounter: 09:25 - Discharge Diagnosis (1) Acute exacerbation of chronic obstructive pulmonary disease (COPD) Priority: Primary Status: Acute Assessment and Plan: - Presented with CC of shortness of breath - Received Duoneb, Solumedrol, and Levaquin at [place] - CXR with no acute abnormalities at both [place] and [facility] - Leukocytosis of 21 and 17.9 initially, improved today at 13.0 - MRSA swab negative - Strep and Legionella urine antigens negative - Blood cultures x2 pending - no growth at over 48 hours Continue Levaquin for 4 more days Continue Prednisone 40mg po for 1 more day to complete a 5 day steroid burst Given prescription for an albuterol inhaler Qualified for 2lpm home O2 (2) Acute exacerbation of CHF (congestive heart failure) Priority: Primary Status: Acute Assessment and Plan: - Presented with CC of shortness of breath and edema - Recently taken off Lasix by his PCP with reported subsequent weight gain - Received 40mg Lasix at [place] with significant clinical improvement following - Echo with the following findings: LVEF 65%. Mild left ventricular diastolic dysfunction. Normal right ventricular structure and function. Mild mitral regurgitation. Mild-moderate tricuspid regurgitation. Moderate pulmonary hypertension. There is a trivial pericardial effusion present. There is no echocardiographic evidence of tamponade. Plan as above in COPD exacerbation plus daily Lasix PO Lasix 40mg daily Recommend 1.5L fluid restricted diet Will require follow up with PCP Qualifiers: Heart failure type: diastolic Qualified Code(s): I50.33 - Acute on chronic diastolic (congestive) heart failure (3) Elevated troponin Priority: Secondary Status: Resolved Assessment and Plan: - Continues to deny chest pain - EKG without ischemic changes - Initial trop 0.07 --> 0.05 --> 0.03 - Likely due to demand ischemia with acute exacerbations of chronic illnesses as above (4) Hypertension Priority: Secondary Status: Chronic Assessment and Plan: Controlled at 118/69 Continue home Lisinopril Qualifiers: Qualified Code(s): I10 - Essential (primary) hypertension (5) Hyperlipidemia Priority: Secondary Status: Chronic Assessment and Plan: Continue home Lipitor Qualifiers: Hyperlipidemia type: unspecified Qualified Code(s): E78.5 - Hyperlipidemia, unspecified Hospital course: Mr. Cespedes is a 57 year old male with PMH of lung cancer s/p partial lobectomy, CHF, and COPD. He originally presented to [place] on 06/08/18 complaining of shortness of breath. While at [facility] he was given nebulizer treatments, Lasix 40 mg, Solu-Medrol 125, and Levaquin 750. Chest x- ray was negative for pneumonia. He was found to have a WBC of 21 which prompted the antibiotic treatment. BNP was within normal limits at 360, however troponin was elevated at 0.07 and lactic acid at 2.39. EKG was performed that did not reveal any acute ST-T wave changes. Patient was transferred to [facility] for further care and management and possible cardiology consultation. Labs drawn at [place] showed WBC of 17.9, improved troponin of 0.05, and improved lactic acid of 1.0. Echocardiogram revealed LVEF 65% with mild LV diastolic dysfunction, mild mitral regurgitation, mild-moderate tricuspid regurgitation, and moderate pulmonary HTN. Cardiology evaluated patient are recommended diuresis and continued ASA and lisinopril. Serial troponins trended to negative and no EKG changes were seen on repeat EKGs. Elevated troponin on admission was likely due to acute exacerbations of chronic illnesses. Respiratory status improved greatly with IV lasix, steroids, and levaquin. Edema in lower extremities was markedly improved at time of discharge. Labs while admitted did reveal a stable anemia. Attempted to obtain previous records, but had not been received at time of discharge. Pt's family did call and state they notice blood streaks on underwear while doing pt's laundry. Recommend follow up with PCP after discharge with possible need for stool hemoccult. Prescriptions were provided for remaining 4 days of Levaquin, 1 day remaining of Prednisone, 40mg Lasix po daily, and an albuterol inhaler. Recommended pt follow a 1.5L fluid restricted diet as well for CHF management. Discharge discussed with: patient, nurse, social work - Time Spent with Patient Total time spent providing and/or coordinating discharge services: Less than 30 minutes - Discharge Medications Prescriptions: New Albuterol Sulfate [Proair Hfa] 1 puff IH Q6HR PRN 30 Days #1 inh PRN Reason: Shortness Of Breath/Wheezing Furosemide [Lasix] 40 mg PO DAILY 30 Days #30 tablet levoFLOXacin [Levaquin] 500 mg PO DAILY 4 Days #4 tablet predniSONE [PredniSONE] 40 mg PO DAILY 1 Days #1 tablet Continue Atorvastatin Calcium [Lipitor] 40 mg PO HS Aspirin/Calcium Carbonate/Mag [Aspirin Buffered 325 mg Tab] 325 mg PO DAILY Mirtazapine 7.5 mg PO HS Lisinopril [Zestril] 20 mg PO DAILY Ranitidine HCl [Acid Chocolate Finisher Operator] 150 mg PO BID Home Medications: Aspirin/Calcium Carbonate/Mag [Aspirin Buffered 325 mg Tab] 325 mg PO DAILY 06/08/18 [History] Atorvastatin Calcium [Lipitor] 40 mg PO HS 06/08/18 [History] Lisinopril [Zestril] 20 mg PO DAILY 06/08/18 [History] Mirtazapine 7.5 mg PO HS 06/08/18 [History] Ranitidine HCl [Acid Chocolate Finisher Operator] 150 mg PO BID 06/09/18 [History] Albuterol Sulfate [Proair Hfa] 1 puff IH Q6HR PRN 30 Days #1 inh 06/12/18 [Rx] Furosemide [Lasix] 40 mg PO DAILY 30 Days #30 tablet 06/12/18 [Rx] levoFLOXacin [Levaquin] 500 mg PO DAILY 4 Days #4 tablet 06/12/18 [Rx] predniSONE [PredniSONE] 40 mg PO DAILY 1 Days #1 tablet 06/12/18 [Rx] Allergies/Adverse Reactions: Allergy/AdvReac Type Severity Reaction Status Date / Time No Known Allergies Allergy Unverified 06/08/18 23:52 Date of admission: 06/10/18 14:44 Primary care physician: Herman Ramey Consults: 06/08/18 22:58 Consult to Nurse Navigator [CONS] Routine Comment: 06/09/18 05:07 Consult to Cardiology [CONS] Routine Comment: Consulting Provider: Cardiology Ila Reason for Consult: SOB, tachycardia, elevated troponin in the setting of Twave inversions in leads V4 and V5 Call Completed: No 06/09/18 16:34 Consult to Nutrition [CONS] Routine Comment: Consulting Provider: NUTRITION Reason for Dietary Consult: Other Other:: weight loss related to lung cancer Discharging clinician: Joe Garcia Constitutional Vitals: Temp Pulse Resp BP Pulse Ox 98.4 F 75 16 118/69 95 06/12/18 07:47 06/12/18 07:47 06/12/18 07:47 06/12/18 07:47 06/12/18 07:47 General appearance: Present: cooperative, A&O X 3, pleasant, no acute distress, answers questions appropriately Exam: General: well nourished and well developed male in no acute distress Head: normocephalic and atraumatic Eyes: PERRL, EOMI, sclera anicteric, conjunctiva pink Neck: supple, trachea midline Lungs: Diffuse coarse breath sounds. No wheezes or rhonchi. Non-labored breathing on 2lpm NC Heart: RRR +s1 +s2 No murmurs, clicks, or rubs GI: abdomen soft, non-tender, non-distended. normoactive bowel sounds Extremities: warm, radial pulses palpable and symmetrical. Trace pitting edema in bilateral LEs. No cyanosis or calf tenderness Neuro: A&Ox3. no focal deficits. no speech difficulty or abnormality Skin: warm, dry, intact - Patient Status Disposition: Home, Self-Care Condition: Good Functional capacity at discharge: independent ambulation Overall status at discharge: patient is progressing back to baseline - Discharge Instructions Instructions: Furosemide (By mouth), Albuterol (By breathing), Prednisone (By mouth), Levofloxacin (By mouth), Heart Failure (DC), Chronic Obstructive Pulmonary Disease (DC) Follow Up With: Herman Ramey DO [Primary Care Provider] - (f/u recommended 3-5 days after discharge) Additional Instructions: Your family noted you may have had some rectal bleeding at home. You did not have any while you were here. IT IS RECOMMENDED YOU SEE YOUR PCP SO THAT THIS CAN BE FURTHER INVESTIGATED OUTPATIENT. YOU ALSO HAVE ANEMIA, AND WITHOUT PRIOR RECORDS WE CANNOT DETERMINE IF IT IS OLD OR RELATIVELY NEW. WHEN YOU SEE YOUR PCP REPEAT HGB CHECK AND FURTHER OUTPATIENT WORK UP IS RECOMMENDED. Red blood cell count was stable without signs of bleeding while you were here but is lower than normal. You are discharging on Lasxi 40 mg daily. It is recommended you follow a daily 1.5L fluid restriction to avoid fluid overload. Call your PCP if you note 3lb weight gain within a weeks time. - Diet and Activity Activity: increase activity as tolerated Diet: regular diet <Naomy Soto - Last Filed: 06/12/18 15:45> - NOTES TO OUTPATIENT PROVIDER Notes to Outpatient Provider: Requires PCP follow up regarding family report of finding blood streaks on his underwear while doing laundry this week. He had no bleeding here. Given he is anemic, which was stable this admission, recommend PCP follow up and further work up/management of these issues. Orders not resulted at time of discharge: Pending orders 06/08/18 22:58 Culture,Sputum with Gram Stain [RM] Routine 06/09/18 05:51 Culture,Blood [BC] Stat Date of Encounter: 06/12/18 - Discharge Diagnosis (1) Acute exacerbation of chronic obstructive pulmonary disease (COPD) Status: Acute (2) Elevated troponin Status: Resolved (3) Hypertension Status: Chronic Qualifiers: Qualified Code(s): I10 - Essential (primary) hypertension (4) Hyperlipidemia Status: Chronic Qualifiers: Hyperlipidemia type: unspecified Qualified Code(s): E78.5 - Hyperlipidemia, unspecified (5) Acute exacerbation of CHF (congestive heart failure) Status: Acute Qualifiers: Heart failure type: diastolic Qualified Code(s): I50.33 - Acute on chronic diastolic (congestive) heart failure Hospital course: Mr. Cespedes is a 57 year old male - Time Spent with Patient Total time spent providing and/or coordinating discharge services: Less than 30 minutes (25 min) Date of admission: 06/10/18 14:44 Primary care physician: Herman Ramey Consults: 06/08/18 22:58 Consult to Nurse Navigator [CONS] Routine Comment: 06/09/18 05:07 Consult to Cardiology [CONS] Routine Comment: Consulting Provider: Cardiology Ila Reason for Consult: SOB, tachycardia, elevated troponin in the setting of Twave inversions in leads V4 and V5 Call Completed: No 06/09/18 16:34 Consult to Nutrition [CONS] Routine Comment: Consulting Provider: NUTRITION Reason for Dietary Consult: Other Other:: weight loss related to lung cancer - Constitutional Vitals: Temp Pulse Resp BP Pulse Ox 98.4 F 75 16 118/69 95 06/12/18 07:47 06/12/18 07:47 06/12/18 07:47 06/12/18 07:47 06/12/18 07:47 - Patient Status Overall status at discharge: patient is progressing back to baseline - Diet and Activity Activity: increase activity as tolerated - Attending Attestation I examined this patient and my medical decision-making was reviewed with the Resident Physician Dr Rico. I agree with the documented findings, disposition and treatment plan as described except to the extent set forth below. Mr Cespedes is being observed for COPDE and Acute on Chronic CHF exacerbation both of which havve improved with treatment. He is stable for dc to home with outpt completion of abx and resuming lasix PO. He qualified for home o2 and SW has arranged. he will dc to home with family with outpt fu. Mr Cespedes is awake, pleasant. cough greatly improved, denies wheezing or sob. no fevers or chills. still some le edema but overall very improved. He is excited to dc to home today and discharge plan discussed. no family at bedside but were updated to todays plan by our team yesterday. gen- alert, awake,appears stated age cv- reg rate and rhythm, normal s1,s2, no murmurs appreciated, trace pitting edema to bl shins, no jvd lungs- ctabl, no rhonchi or crackles, normal resp effort on o2 nc skin- warm, dry no pallor or rash neuro- AAOx3 1. COPDE- outpt steroid taper, complete levaquin course outpt, home o2 nc, rx and albuterol inhaler rx on dc, bl cxs at time of dc ngtd, fu with pcp 2.Acute on Chronic Diastolic CHF Exacerbation- home lasix recently held outpt, cont 40 mg po daily on discharge and 1.5L daily fluid restriction, fu outpt 3. Trop elevation, resolved, no ekg changes- cards has seen and signed off-cont home meds, fu outpt, does not require stress test as negative within last year per cards 4. Anemia, unknown if acute, acute on chronic or stable chronic- drop in all 3 cell lines on admit, no signs of active bleeding this admit, family noted to team 06/11 they found streaks of red blood in underwear at home this week, ordered occult stool but did not have bm to collect prior to discharge so discontinued, bm earlier this admit had no noted blood. Will recommend he fu with pcp for further work up and monitoring of hgb Further assessment and plan as noted by resident time spent on dc 25 min
[2018-06-12] MEDS ORDERED: levoFLOXacin 500 MG TABLET PO SCH (09:00)
[2018-06-12] MEDS ORDERED: Furosemide 40 MG TABLET PO SCH (09:00)
[2018-06-12] MEDS ORDERED: predniSONE 20 MG TABLET PO SCH (09:00)
[2018-06-12] MEDS: Aspirin Enteric Coated 325 MG Tablet PO SCH (11:00)
[2018-06-12] MEDS: Famotidine 20 MG TABLET PO SCH (11:00)
[2018-06-12] MEDS: Lisinopril 20 MG TABLET PO SCH (11:00)
--- NOTE | 2018-06-12 13:17 | Physician Discharge Referral ---
Home Health/Hosp Referral Info Transfer to: Home Health Provider in Charge Post Discharge: PCP - Diagnosis (1) Acute exacerbation of chronic obstructive pulmonary disease (COPD) Priority: Primary Status: Acute (2) Elevated troponin Priority: Secondary Status: Resolved (3) Hypertension Priority: Secondary Status: Chronic (4) Hyperlipidemia Priority: Secondary Status: Chronic (5) Acute exacerbation of CHF (congestive heart failure) Priority: Secondary Status: Acute - Respiratory Orders Oxygen / L per min (2L) Smoking Cessation: Smoking cessation has been advised. For more information, call the [place] [employer] Quit Line at 8-479-GOLE-NOW. - Diet/Nutrition Diet/Nutrition Orders: No Added Salt (JEN), Cardiac (1.5L daily fluid restriction) - Activity Activity Orders: Up ad betsy - Services Needed Following services are medically necessary services: Nursing, Physical Therapy, Occupational Therapy - Transfer Medications Prescriptions: Albuterol Sulfate [Proair Hfa] 1 puff IH Q6HR PRN 30 Days #1 inh PRN Reason: Shortness Of Breath/Wheezing Furosemide [Lasix] 40 mg PO DAILY 30 Days #30 tablet levoFLOXacin [Levaquin] 500 mg PO DAILY 4 Days #4 tablet predniSONE [PredniSONE] 40 mg PO DAILY 1 Days #1 tablet Home Medications: Aspirin/Calcium Carbonate/Mag [Aspirin Buffered 325 mg Tab] 325 mg PO DAILY 06/08/18 [History] Atorvastatin Calcium [Lipitor] 40 mg PO HS 06/08/18 [History] Lisinopril [Zestril] 20 mg PO DAILY 06/08/18 [History] Mirtazapine 7.5 mg PO HS 06/08/18 [History] Ranitidine HCl [Acid Borough Coordinator] 150 mg PO BID 06/09/18 [History] Albuterol Sulfate [Proair Hfa] 1 puff IH Q6HR PRN 30 Days #1 inh 06/12/18 [Rx] Furosemide [Lasix] 40 mg PO DAILY 30 Days #30 tablet 06/12/18 [Rx] levoFLOXacin [Levaquin] 500 mg PO DAILY 4 Days #4 tablet 06/12/18 [Rx] predniSONE [PredniSONE] 40 mg PO DAILY 1 Days #1 tablet 06/12/18 [Rx] Allergies/Adverse Reactions: Allergy/AdvReac Type Severity Reaction Status Date / Time No Known Allergies Allergy Unverified 06/08/18 23:52 Certification: Further, I certify that my clinical findings support that this patient is homebound (i.e. absences from home require considerable and taxing effort and are for medical reasons or [facility] or infrequently or short duration when for other reasons) because: Homebound Reason: Leaving home requires considerable and taxing effort due to condition Attestation: My signature below is to certify that this patient is under my care and that I, or nurse practitioner, or a physician's operations administrative assistant working with me, has a [id number] encounter with this patient.
== END 2018-06-12 15:27 | disposition home or self-care (01) | DRG 140 ==
LOC: 2SOUTHHOLD → SUATTDRO 22:28 → 2NENU 06-10 01:22
PROVIDERS: ADMIT Internal Medicine; ATTEND Internal Medicine

== ENCOUNTER 2019-10-30 19:20 | Inpatient (IN) ==
[2019-10-30] MEDS ORDERED: Naloxone 0.4 MG/ML INJ IVP PRN (21:18)
[2019-10-30 21:59] LABS: Basophils % 0.1 %; Hematocrit 37.4 % (37.5-50.1); Hemoglobin 12.4 g/dL (12.9-16.9); Immature Granulocytes % 0.9 % (0-4); Lymphocytes # 0.5 K/mcL (0.6-4.6); Lymphocytes % 4.1 %; Mean Corpuscular HGB Conc 33.2 g/dL (31.6-35.5); Mean Corpuscular Hemoglobin 29.7 pg (28.0-33.3); Mean Corpuscular Volume 89.7 fL (83.0-100.0); Mean Platelet Volume 9.7 fL (9.4-12.4); Monocytes # 0.1 K/mcL (0.0-1.3); Monocytes % 1.1 %; Platelet Count 190 K/mcL (140-400); Red Blood Count 4.17 M/mcL (4.19-5.50); Red Cell Distribution Width 12.9 % (11.5-14.5); Segmented Neutrophils % 93.8 %; White Blood Count 12.8 K/mcL (4.3-11.1)
[2019-10-30 22:23] LABS: Albumin 3.7 g/dL (3.5-5.7); Albumin/Globulin Ratio 1.1 (1.1-2.2); Bilirubin,Total 0.3 mg/dL (0.3-1.0); Globulin 3.3 g/dL (2.4-3.5); Magnesium 2.3 mg/dL (1.6-2.6); Phosphorous 8.3 mg/dL (2.7-4.5); Potassium 4.2 mEq/L (3.5-5.1)
[2019-10-31 03:59] LABS: ABG Base Excess -4 mEq/L (-2 to 3); ABG HCO3 23 mEq/L (21-27); ABG Oxygen Saturation 98 % (95-98); ABG PCO2 44 mmHg (35-45); ABG PH 7.32 pH Units (7.32-7.45); ABG PO2 106 mmHg (85-104); ABG TCO2 24 mEq/L (20-26)
[2019-10-31 06:17] LABS: Hematocrit 37.9 % (37.5-50.1); Hemoglobin 12.6 g/dL (12.9-16.9); Mean Corpuscular HGB Conc 33.2 g/dL (31.6-35.5); Mean Corpuscular Hemoglobin 29.6 pg (28.0-33.3); Mean Platelet Volume 9.3 fL (9.4-12.4); Platelet Count 195 K/mcL (140-400); Red Blood Count 4.26 M/mcL (4.19-5.50); White Blood Count 6.9 K/mcL (4.3-11.1)
[2019-10-31 06:37] LABS: Magnesium 2.5 mg/dL (1.6-2.6); Phosphorous 8.1 mg/dL (2.7-4.5)
[2019-10-31 06:38] LABS: Albumin 3.8 g/dL (3.5-5.7); Albumin/Globulin Ratio 1.2 (1.1-2.2); Bilirubin,Total 0.3 mg/dL (0.3-1.0); Globulin 3.2 g/dL (2.4-3.5); Potassium 5.1 mEq/L (3.5-5.1)
[2019-10-31 07:05] LABS: Bilirubin,Urine Negative (Negative); Blood,Urine Negative (Negative); Clarity,Urine Clear (Clear); Color,Urine Light-Yellow (Yellow); Glucose,Urine (UA) Normal (Normal); Ketones,Urine Negative (Negative); Leukocyte Esterase,Urine Negative (Negative); Nitrite,Urine Negative (Negative); PH,Urine 5.5 pH Units (5.0-8.0); Protein,Urine Trace mg/dL (Neg-Trace); Specific Gravity,Urine 1.015 (1.010-1.025); Urobilinogen,Urine Normal (Normal)
[2019-10-31] MEDS: 0.9 % Sodium Chloride 1,000 ML IVC SCH ×2 (10:05→23:30)
[2019-10-31] MEDS ORDERED: Ipratropium/Albuterol Neb 3 ML IH PRN (11:50)
[2019-10-31 12:50] LABS: Calcium 8.9 mg/dL (8.6-10.3); Potassium 4.7 mEq/L (3.5-5.1)
[2019-10-31 19:40] LABS: Calcium 8.9 mg/dL (8.6-10.3); Potassium 4.7 mEq/L (3.5-5.1)
[2019-11-01 00:59] LABS: Calcium 8.7 mg/dL (8.6-10.3); Potassium 4.7 mEq/L (3.5-5.1)
[2019-11-01] MEDS: Aspirin 81 MG TAB.CHEW PO SCH (09:24)
[2019-11-01] MEDS: Acetaminophen 325 MG TABLET PO SCH ×2 (09:24→19:59)
[2019-11-01 09:52] LABS: Basophils % 0.2 %; Eosinophils # 0.1 K/mcL (0.0-0.6); Eosinophils % 0.7 %; Hematocrit 38.6 % (37.5-50.1); Hemoglobin 12.3 g/dL (12.9-16.9); Immature Granulocytes % 0.6 % (0-4); Lymphocytes # 2.4 K/mcL (0.6-4.6); Lymphocytes % 19.8 %; Mean Corpuscular HGB Conc 31.9 g/dL (31.6-35.5); Mean Corpuscular Hemoglobin 29.2 pg (28.0-33.3); Mean Corpuscular Volume 91.7 fL (83.0-100.0); Mean Platelet Volume 9.3 fL (9.4-12.4); Monocytes # 1.6 K/mcL (0.0-1.3); Monocytes % 12.8 %; Platelet Count 199 K/mcL (140-400); Red Blood Count 4.21 M/mcL (4.19-5.50); Red Cell Distribution Width 13.2 % (11.5-14.5); Segmented Neutrophils % 65.9 %
[2019-11-01 09:54] LABS: White Blood Count 12.1 K/mcL (4.3-11.1)
[2019-11-01 10:10] LABS: Complement C3 122 mg/dL (87-200)
[2019-11-01 10:11] LABS: Rheumatoid Factor < 10 IU/mL (Less than 14)
[2019-11-01 10:12] LABS: Potassium 4.7 mEq/L (3.5-5.1)
[2019-11-01 10:36] LABS: Vitamin B12 383 pg/mL (250-1100)
[2019-11-01] MEDS: 0.9 % Sodium Chloride 1,000 ML IVC SCH (13:35)
[2019-11-01 15:05] LABS: Protein/Creatinine Ratio,Urine 0.26 mg/mg (0.00-0.20)
[2019-11-01] MEDS ORDERED: Mirtazapine 15 MG TABLET PO SCH (21:00)
[2019-11-02] MEDS: 0.9 % Sodium Chloride 1,000 ML IVC SCH (03:13)
[2019-11-02 05:07] LABS: BUN/Creatinine Ratio 21 (6-26); Blood Urea Nitrogen 24 mg/dL (8-23); Calcium 9.1 mg/dL (8.6-10.3); Carbon Dioxide 23 mEq/L (23-29); Chloride 105 mEq/L (98-107); Glucose 83 mg/dL (70-105); Osmolality,Calculated 277 (280-300); Potassium 5.3 mEq/L (3.5-5.1); Sodium 132 mEq/L (136-145); eGFR For African Americans > 60 (> 60); eGFR For Non-African Americans > 60 (> 60)
[2019-11-02] MEDS: Acetaminophen 325 MG TABLET PO SCH (07:19)
[2019-11-02] MEDS: Aspirin 81 MG TAB.CHEW PO SCH (07:19)
[2019-11-02 11:56] VITALS: BP 149/79
== END 2019-11-02 13:21 | disposition home or self-care (01) | DRG 469 ==
LOC: 3ANU → SUATTDRO 20:44
PROVIDERS: ADMIT Internal Medicine; ATTEND Internal Medicine